=== PATIENT | female | born 1930 | race Caucasian/White ===

== ENCOUNTER 2018-01-22 14:00 | Observation (INO) | payer MEDICARE, OTHER ==
[2018-01-22 14:49] LABS: #Eosinphils 0.1 thou/uL (0.0-0.7); #Lymphocytes 1.3 thou/uL (1.20-3.40); #Monocytes 0.7 thou/uL (0.11-0.59); #Neutrophils 6.1 thou/uL (1.40-6.50); %Basophils 0.2 % (0.0-1.0); %Eosinophils 1.6 % (0.0-10.0); %Lymphocytes 15.4 % (21.0-51.0); %Monocytes 8.5 % (0.0-10.0); %Neutrophils 74.3 % (42.0-75.0); Hemoglobin 14.8 g/dL (12.0-16.0); Mean Corpuscular HGB CONC 34.7 g/dL (32.0-36.0); Mean Corpuscular Hemoglobin 32.9 pg (27.0-31.0); Mean Corpuscular Volume 94.7 fl (81.0-99.0); Mean Platelet Volume 7.5 fL (7.4-10.4); Platelet Count 228 thou/uL (130-400); RBC Distribution Width 11.7 % (11.5-14.5); Red Blood Cell (RBC) Count 4.48 mill/uL (4.20-5.40); White Blood Cell (WBC) Count 8.2 thou/uL (4.8-10.8)
[2018-01-22 15:11] LABS: ALT (SGPT) 16 U/L (8-55); AST (SGOT) 19 U/L (5-34); Alkaline Phosphatase 67 U/L (40-150); Anion Gap 13 mmol/L (10-20); BUN (Urea Nitrogen) 25 mg/dL (9.8-20.1); CK (CPK) 97 U/L (29-168); Calc. Creatinine Clearance 0 mL/min (70-130); Calcium 9.3 mg/dL (7.8-10.44); Carbon Dioxide 22 mmol/L (23-31); Chloride 107 mmol/L (98-107); Estimated GFR-MDRD 56; Glucose 146 mg/dL (83-110); Magnesium 2.2 mg/dL (1.6-2.6); Potassium 4.1 mmol/L (3.5-5.1); Sodium 138 mmol/L (136-145)
[2018-01-22 15:23] LABS: CKMB 0.8 ng/mL (0-6.6); Troponin I Less than 0.010 ng/mL (< 0.028)
--- NOTE | 2018-01-22 15:42 | RAD ---
AP VIEW OF THE CHEST: INDICATION: History of syncope with a history of unresponsiveness after a bowel movement. COMPARISON: None. FINDINGS: The lungs are mildly hyperexpanded with interstitial prominence possibly reflective of underlying WELDING MACHINE OPERATOR FRICTION D. There is some scar-like opacity seen within the region of the right middle lobe. No airspace con solidation is evident. Mild cardiomegaly is present. No pleural effusion is evident. Pulmonary vas culature is within normal limits. There is a dual-lead pacemaker overlying the left chest wall. No acute osseous abnormality is evident. IMPRESSION: 1. Chronic obstructive pulmonary disease change. 2. Mild cardiomegaly without evidence of cardiac decompensation. 3. Dual-lead pacemaker. POS: RICHARD
[2018-01-22 16:51] LABS: Bilirubin Negative (Negative); Blood, Urine Negative (Negative); Clarity CLEAR (Clear); Glucose, Urine (Dipstick) Negative (Negative); Leukocyte Moderate (Negative); Nitrite Negative (Negative); Protein, Urine (Dipstick) Negative (Neg-Trace); Specific Gravity, Urine 1.018 (1.002-1.036); Urobilinogen 0.2 mg/dL (0.2-1.0)
[2018-01-22 16:55] LABS: Bacteria/HPF None Seen HPF (None Seen); Hyaline Casts/LPF 0-3 HYALINE CAST LPF (0-3 Hyaline); Pathc Cast-AUWi Flag 0.43 (0-2.49); RBC/HPF 0-3 HPF (0-3); Squamous Epithelial 0-3 HPF (0-3)
[2018-01-22 16:58] LABS: Renal Epithelial None Seen HPF (0-3); Transitional Epithelial NONE SEEN HPF (0-3)
--- NOTE | 2018-01-22 17:41 | CT ---
CT OF BRAIN WITHOUT CONTRAST: 01/22/18 INDICATION: History of syncopal episode. COMPARISON: None. FINDINGS: No acute infarct, hemorrhage or hydrocephalus is present. Septum pellucidum and third ventricle are m idline. Skull and extracranial soft tissues appear within normal limits. IMPRESSION: No acute intracranial abnormality. POS: JASON
[2018-01-22] MEDS ORDERED: Acetaminophen 325 MG TAB PO PRN ×2 (17:55→22:37)
[2018-01-22] MEDS ORDERED: Ondansetron HCl/PF 4 MG/2 ML Vial IVP PRN ×2 (17:55→22:37)
[2018-01-22] MEDS ORDERED: Ondansetron ODT 4 MG TAB SL PRN (17:55)
[2018-01-22 18:09] VITALS: BMI 26.6
[2018-01-22] MEDS ORDERED: hydrALAZINE 20 MG/ML VIAL SLOW IVP PRN (19:17)
[2018-01-22] MEDS ORDERED: cloNIDine 0.1 MG TAB PO PRN (19:17)
[2018-01-22] MEDS: Famotidine 20 MG TAB PO SCH ×2 (20:10→20:14)
[2018-01-22] MEDS: NIFEdipine XL 30 MG TAB PO SCH (20:11)
[2018-01-22] MEDS: Sotalol HCl 80 MG TAB PO SCH (20:11)
[2018-01-22] MEDS: Metamucil PACK PO SCH (20:11)
[2018-01-22] MEDS ORDERED: Lisinopril 10 MG TAB PO SCH (21:00)
[2018-01-22] MEDS ORDERED: Milk Of Magnesia 30 ML UDCUP PO PRN (22:37)
[2018-01-22] MEDS ORDERED: Ondansetron ODT 4 MG TAB PO PRN (22:37)
[2018-01-22] MEDS ORDERED: Mag-Al 1200 mg/1200 mg/30 ML UDCUP PO PRN (22:37)
[2018-01-22] MEDS ORDERED: Senokot 8.6 MG TAB PO PRN (22:37)
[2018-01-22] MEDS ORDERED: Loperamide HCl 2 MG CAP PO PRN (22:37)
--- NOTE | 2018-01-23 00:23 | HP ---
PRIMARY CARE PHYSICIAN: Patient is city call admission. She is originally from [place]. REASON FOR ADMISSION: Syncope. HISTORY OF PRESENT ILLNESS: An 87-year-old female who has underlying history of sick sinus syndrome with pacemaker, who was brought to ER for syncope. Patient was [place]. She was in car driving towards home. On the way, she felt like she supposed to go for BM and wh en patient reached rest stop, patient was found unresponsive. Patient had a pulse, but she was less responsive for a few minutes. Paramedics were called at that time her blood sugar was 140 and blood pressure was 80/40. Patient was given 150 mL of IV fluid, and patient's blood pressure improved. Sh mansoor did not have any seizure activity. She did not have any chest pain, palpitation. She did not have any orthopnea, PND, or leg swelling. Patient only felt cramps in her abdomen before going for bowel movement. She denies any fever or chills. She denies any UTI symptoms. She denies any diarrhea. She denies any headache or focal motor or sensory symptoms. REVIEW OF SYSTEMS: Please see my HPI for pertinent positive and negative. All other review of syste m reviewed and negative except as mentioned in HPI: Constitutional: Weight loss or gain, ability to conduct usual activities. Skin: Rash, itching. Eyes: Double vision, pain. ENT/Mouth: Nose blee ding, neck stiffness, pain, tenderness. Cardiovascular: Palpitations, dyspnea on exertion, orthopne a. Respiratory: Shortness of breath, wheezing, cough, hemoptysis, fever, or night sweats. Gastroin testinal: Poor appetite, abdominal pain, heartburn, nausea, vomiting, constipation, or diarrhea. Ge nitourinary: Urgency, frequency, dysuria, nocturia. Musculoskeletal: Pain, swelling. Neurologic/P sychiatric: Anxiety, depression. Allergy/Immunologic: Skin rash, bleeding tendency. PAST MEDICAL HISTORY: History of diverticulitis with bleed, sick sinus syndrome with pacemaker, atri al fibrillation, hypothyroidism, hypertension. PAST SURGICAL HISTORY: Bowel resection, cataract surgery, appendicectomy, cholecystectomy, hysterect daniel, right knee replacement, left knee replacement, thyroidectomy, tonsillectomy. PAST PSYCHIATRIC HISTORY: Reviewed and negative. SOCIAL HISTORY: Patient denies any tobacco, alcohol, or illicit drug abuse. FAMILY HISTORY: No strong family history of premature coronary artery disease, stroke, or cancer. ALLERGIES: AMOXICILLIN, ERYTHROMYCIN, VANCOMYCIN. CURRENT HOME MEDICATIONS: Synthroid 75 mcg p.o. daily, Pepcid 40 mg p.o. daily, sotalol 120 mg p.o. daily, lisinopril 10 mg p.o. daily, Procardia-XL 30 mg twice daily, aspirin 81 mg p.o. daily. EMERGENCY ROOM COURSE: Reviewed. PHYSICAL EXAMINATION: VITAL SIGNS: On arrival to emergency room blood pressure 158/100, pulse 65, respiratory rate 18, tem perature 97.7, saturation 97% on room air, weight 63.5 kilograms. GENERAL: Patient is currently alert, awake, no acute distress. HEAD: Normocephalic, atraumatic. EYES: Pupils round, reactive to light. Extraocular muscle intact . ENT: Oropharynx within normal limits. Moist mucous membranes. No oral lesion, no pharyngeal erythe ma, no exudate. NECK: Supple, no JVD, no thyromegaly, no carotid bruit, no jugular venous distention. LUNGS: Clear to auscultation without any rhonchi or rales. CARDIAC: S1, S2 appears regular. No murmur, no gallop, no rub. Pacemaker in place without any surr ounding tenderness. ABDOMEN: Soft, bowel sounds present, nontender, nondistended. No organomegaly, no mass, no peritone al sign, no suprapubic tenderness. BACK: Unremarkable, no CVA tenderness. EXTREMITIES: Upper extremity passive movement of all joints are normal. Lower extremities: No mirta a. Good peripheral pulsation, no calf tenderness. SKIN: No skin rash. HEMATOLOGICAL SYSTEM: No lymphadenopathy. PSYCHIATRIC: Normal affect. NEUROLOGIC: Patient is alert, oriented x3. Cranial nerves II-XII intact. Motor and sensation withi n normal limits. No focal neurological deficit noted. SIGNIFICANT LABORATORY DATA: 1. EKG showing normal sinus rhythm, nonspecific ST-T changes plus atrial pacemaker rhythm. 2. CT brain based on my review, no acute intracranial process. 3. Chest x-ray based on my review, no acute cardiopulmonary process. 4. CBC: WBC 8.2, hemoglobin 14.8, platelet 228. 5. BMP: Sodium 138, potassium 4.1, chloride 107, carbon dioxide 22, anion gap 13, BUN 25, creatinin e 0.95, glucose 146, calcium 9.3. 6. LFT: AST 19, ALT 16, alkaline phosphatase 67, albumin 4.0. TSH 0.99. BNP 102, CK-MB 0.8, tropo sidra I less than 0.010. Urinalysis suggestive of UTI. ASSESSMENT AND PLAN: 1. Syncope. I am suspecting from orthostatic hypotension. Patient had documented hypotension at th e scene with blood pressure 80/40 and improved after IV fluid. Patient is on two different antihyper tensive medication that might have contributed to her orthostatic hypotension especially in hot humid weather and traveling. She does not have any calf tenderness and she does not have any pleuritic ch est pain and her saturation is normal and at this point, no suspicious for thromboembolic disorder at all. She does not have any angina, but we will do serial cardiac enzymes x3 to rule out acute coron ced syndrome. We will obtain echocardiography to assess EF and other structural abnormality. We marty l do carotid Doppler to rule out any carotid stenosis. We will check orthostatic vitals and monitor on telemetry floor. We also interrogated her pacemaker and is without any event. At this point, our main suspicious is towards orthostatic hypotension. 2. Hypertension. We will monitor patient's blood pressure while in hospital and at this point, we a re resuming her lisinopril 10 mg p.o. b.i.d., Procardia 30 mg p.o. b.i.d. and we will monitor on tele metry floor. We will monitor vitals as well and avoid blood pressure medication if blood pressure is less than 120. We will also check orthostatic vitals and rule out orthostatic hypotension. 3. Atrial fibrillation, required pacemaker. We will continue patient's home dose of Betapace 120 mg p.o. b.i.d. and aspirin 81 mg p.o. daily. 4. Hypothyroidism. Continue Synthroid 75 mcg p.o. daily. 5. Asymptomatic urinary tract infection. Patient does not have any urinary tract infection symptoms . She does not have any leukocytosis, does not have any fever. Patient also does not want to contin ue antibiotic therapy. At this point, we will send urine culture and she will follow up with primary care physician. 6. Deep venous thrombosis prophylaxis not needed because we are expecting discharge in 24 hours. 7. Gastrointestinal prophylaxis, Pepcid 20 mg p.o. b.i.d. 8. Code status: Patient is FULL CODE. Patient making decision by herself. Disposition plan based on clinical course likely within 24 hours. Plan of care extensively discussed with the patient in detail.
[2018-01-23 05:54] LABS: #Eosinphils 0.1 thou/uL (0.0-0.7); #Lymphocytes 1.4 thou/uL (1.20-3.40); #Monocytes 0.6 thou/uL (0.11-0.59); #Neutrophils 4.5 thou/uL (1.40-6.50); %Basophils 0.2 % (0.0-1.0); %Eosinophils 1.2 % (0.0-10.0); %Lymphocytes 21.9 % (21.0-51.0); %Neutrophils 67.7 % (42.0-75.0); Hemoglobin 12.8 g/dL (12.0-16.0); Mean Corpuscular HGB CONC 34.1 g/dL (32.0-36.0); Mean Corpuscular Hemoglobin 32.1 pg (27.0-31.0); Mean Corpuscular Volume 94.3 fl (81.0-99.0); Platelet Count 215 thou/uL (130-400); RBC Distribution Width 11.6 % (11.5-14.5); Red Blood Cell (RBC) Count 3.98 mill/uL (4.20-5.40); White Blood Cell (WBC) Count 6.6 thou/uL (4.8-10.8)
[2018-01-23] MEDS ORDERED: Levothyroxine Sodium 75 MCG TAB PO SCH (06:00)
[2018-01-23 06:07] LABS: Anion Gap 11 mmol/L (10-20); BUN (Urea Nitrogen) 16 mg/dL (9.8-20.1); Calc. Creatinine Clearance 62 mL/min (70-130); Calcium 8.2 mg/dL (7.8-10.44); Carbon Dioxide 21 mmol/L (23-31); Chloride 110 mmol/L (98-107); Estimated GFR-MDRD 81; Glucose 92 mg/dL (83-110); Potassium 3.6 mmol/L (3.5-5.1)
[2018-01-23 06:31] LABS: Sodium 138 mmol/L (136-145)
[2018-01-23] MEDS: NIFEdipine XL 30 MG TAB PO SCH (08:45)
[2018-01-23] MEDS: Sotalol HCl 80 MG TAB PO SCH (08:45)
[2018-01-23] MEDS: Metamucil PACK PO SCH (08:54)
[2018-01-23] MEDS: Famotidine 20 MG TAB PO SCH (08:54)
[2018-01-23] MEDS ORDERED: Lisinopril 20 MG TAB PO SCH (09:00)
--- NOTE | 2018-01-23 09:54 | ULT ---
BILATERAL CAROTID DUPLEX ULTRASOUND WITH SPECTRAL ANALYSIS AND COLOR FLOW EVALUATION: DATE: 01/23/18. HISTORY: Syncope. FINDINGS: Mota scale, color flow, Doppler evaluation, and spectral analysis of the bilateral carotid arteries i s performed with 2D imaging. There is calcified atherosclerotic plaque seen in the region of carotid bulbs and proximal internal carotid arteries bilaterally. There is less than 50% maximal stenosis in the bilateral internal carotid arteries according to the p eak systolic velocities and the ICA/CCA ratios. Peak systolic velocity in the right ICA is 61.9 cm/s with an ICA/CCA ratio of 0.87. Peak systolic velocity in the left ICA is 97.9 cm/s with an ICA/CCA ratio of 1.26. Antegrade flow is demonstrated in the vertebral arteries bilaterally. IMPRESSION: No hemodynamically significant stenosis of bilateral internal carotid arteries. POS: JASON
[2018-01-23 11:16] VITALS: TEMP 98.2
[2018-01-23 11:17] VITALS: BP 120/55
--- NOTE | 2018-01-23 12:58 | DIS ---
DATE OF ADMISSION: 01/22/2018 DATE OF DISCHARGE: 01/23/2018 PRIMARY CARE PHYSICIAN: Dr. Faviola Evans in [place]. PRIMARY ELEMENTARY SPANISH TEACHER: Dr. Mikael Traylor in [place]. JEWELRY DRILL OPERATOR: Dr. Thuan Hernandez in [place]. DISCHARGE DIAGNOSES: 1. Syncope. 2. Hypertension. 3. Chronic atrial fibrillation. 4. Status post pacemaker placement remotely. 5. Hypothyroidism. 6. Asymptomatic bacteriuria. CONSULTATIONS: None. PROCEDURES: 1. A 2D echocardiogram on 01/23/2018, results are currently pending. Preliminary report looks unrem arkable. 2. Bilateral carotid ultrasound with Doppler shows no hemodynamically significant stenoses. HOSPITAL COURSE: Ms. Shultz is an 87-year-old female, who was traveling in the car with her family and really had used the restroom after eating. While she was trying to hold it for about 10 miles, the patient was largely unresponsive. She was subsequently brought to the emergency department for e valuation. Reportedly, she had a low blood pressure in the 80s systolic. She was given fluids, and medicines were held, and she was watched overnight. From late night 01/22 until morning of 01/23, blood pressure remained normal. Telemetry monitoring s howed the paced rhythm with a rate that was well controlled. Pacemaker interrogation in the emergenc y department showed no events and her blood pressure remained stable. Orthostatics today were negati ve. The patient was feeling much better. Tolerating her diet and was ready for discharge. On talking wi th the daughter, the patient had not been eating or drinking well the day of admission and has been o ut at a graduation ceremony in the heat and likely was somewhat dehydrated. LABORATORY DATA: Labs today show a CBC and BMP within normal limits. PHYSICAL EXAMINATION: The patient was seen and examined on the day of discharge. Discharge plan and disposition were discussed with the patient [id number] at the bedside. DISCHARGE MEDICATIONS: 1. Aspirin 81 mg daily. 2. Pepcid 20 mg p.o. b.i.d. 3. Hydralazine 10 mg p.o. daily p.r.n. elevated blood pressure. 4. Probiotic daily. 5. Levothyroxine 75 mcg daily. 6. Lisinopril 10 mg p.o. b.i.d. 7. Nifedipine 30 mg p.o. b.i.d. 8. Metamucil 1 packet daily. 9. Sotalol 120 mg p.o. b.i.d. 10. Multivitamin b.i.d. FOLLOWUP APPOINTMENTS: Primary care physician and occupational health specialist in 1-2 weeks. DISCHARGE CONDITION: Stable. DISPOSITION: Being discharged home via private vehicle with her daughter. DISCHARGE ACTIVITY: Per cardiopulmonary limits. DISCHARGE DIET: Heart healthy diet recommended.
--- NOTE | 2018-01-29 15:11 | EKG ---
Test Reason : Blood Pressure : / mmHG Vent. Rate : 065 BPM Atrial Rate : 065 BPM P-R Int : 174 ms QRS Dur : 068 ms QT Int : 448 ms P-R-T Axes : 118 019 016 degrees QTc Int : 465 ms Electronic atrial pacemaker Nonspecific ST abnormality Abnormal ECG Confirmed by ANUEL MELO, KHUSHI ([id number]), digital editor SANA WILKINS ([id number]) on 01/29/2018 3:11:18 PM Referred By: Confirmed By:KHUSHI AGEE MD
== END 2018-01-23 12:49 | disposition home or self-care (01) ==
LOC: ERS 14:00 → 2SW 17:46
PROVIDERS: ADMIT Internal Medicine; ATTEND Internal Medicine
DX: R55 Syncope and collapse (principal); I48.91 Unspecified atrial fibrillation; E03.9 Hypothyroidism, unspecified; I10 Essential (primary) hypertension; Z90.49 Acquired absence of other specified parts of digestive tract; Z90.710 Acquired absence of both cervix and uterus; Z90.89 Acquired absence of other organs; Z96.653 Presence of artificial knee joint, bilateral; Z88.0 Allergy status to penicillin; Z88.1 Allergy status to other antibiotic agents; Z79.82 Long term (current) use of aspirin; Z79.899 Other long term (current) drug therapy
CPT/HCPCS: 70450; 71045; 80048; 82550; 82553; 83735; 83880; 84484; 85025; 87086; 93005; 93306; 93880; 99285; G0378; 36415; 80053; 81003; 81015; 84443